=== PATIENT | female | born 1940 | race Caucasian/White ===

== ENCOUNTER 2022-12-09 17:26 | Emergency (ER) | payer MEDICARE, OTHER ==
[~2022-12-09 17:26] MED LIST: Ondansetron 4 MG/2 ML SDV IVPUSH ONE; Sodium Chloride 0.9% 1,000 ML IV ONE; fentaNYL 100 MCG/2 ML SDV IVPUSH ONE
[2022-12-09] MEDS ORDERED: Iopamidol 612 MG/ML 100 ML Bottle IVPUSH ONE (17:47)
[2022-12-09] MEDS ORDERED: Lidocaine 1% 5 ML VIAL INJECT ONE (17:50)
[2022-12-09 18:06] LABS: HEMATOCRIT 41.3 % (37.0-47.0); HEMOGLOBIN 13.8 g/dL (12.0-16.0); MEAN CORPUSCULAR HEMOGLOBIN 30.4 pg (27.0-34.0); MEAN CORPUSCULAR HGB CONC 33.4 g/dL (33.0-35.0); PLATELET COUNT,PLT 283 10^3/uL (150-450); RED BLOOD CELL COUNT 4.54 10^6/uL (4.2-5.4); WHITE BLOOD CELL COUNT,WBC 15.2 10^3/uL (5.0-10.0)
[2022-12-09] MEDS ORDERED: Midazolam 1 MG/ML 2 ML SDV IVPUSH ONE (18:11)
[2022-12-09] MEDS ORDERED: fentaNYL 100 MCG/2 ML SDV IVPUSH ONE ×2 (18:11→19:06)
[2022-12-09 18:12] LABS: ALANINE AMINOTRANSFERASE,ALT 23 U/L (14-59); ALBUMIN 3.8 g/dL (3.4-5.0); ALKALINE PHOSPHATASE 106 U/L (46-116); ANION GAP 14.3 mEq/L (7-13); ASPARTATE AMNIOTRANSFERASE,AST 28 U/L (15-37); BILIRUBIN TOTAL 0.6 mg/dL (0.2-1.0); BLOOD UREA NITROGEN,BUN 23 mg/dL (7-18); BUN/CREATININE RATIO 20.9 (No establ ref range); CALCIUM 8.6 mg/dL (8.5-10.1); CARBON DIOXIDE,CO2 27 mmol/L (21-32); CHLORIDE,CL 106 mmol/L (98-107); GLUCOSE RANDOM 166 mg/dL (70-99); INR 0.9 (0.9-1.2); POTASSIUM,K 4.3 mmol/L (3.5-5.1); PROTEIN TOTAL,TP 7.5 g/dL (6.4-8.2); PROTHROMBIN TIME 9.5 SEC (9.0-12.0); PTT,PARTIAL THROMBOPLSTIN TIME 22.4 SEC (22.0-34.0); SODIUM,NA 143 mmol/L (136-145)
[2022-12-09 18:13] LABS: C-REACTIVE PROTEIN < 0.2 mg/dL (0.0-0.9); ESTIMATED GFR 50 mL/min (>=60)
[2022-12-09 18:14] LABS: B-TYPE NATRIURETIC PEPTIDE,BNP 39 pg/ml (0-100)
[2022-12-09 18:15] LABS: LACTIC ACID 1.3 mmol/L (0.4-2.0)
[2022-12-09 18:31] LABS: BAND PERCENT MAN 3 %; LYMPHOCYTES PERCENT MAN 22 % (20-50); MONOCYTES PERCENT MAN 5 % (2-8); SEG NEUTROPHILS PERCENT MAN 70 % (42-75)
[2022-12-09] MEDS ORDERED: HYDROmorphone 1 MG/ML Syringe IVPUSH ONE ×2 (19:31→21:20)
== END 2022-12-09 22:00 ==
LOC: EDSEX → EDBD → MERGE 17:26 → DL.ED 17:26
DX: S29.9XXA Unspecified injury of thorax, initial encounter (principal); T79.7XXA Traumatic subcutaneous emphysema, initial encounter; J93.9 Pneumothorax, unspecified; J94.2 Hemothorax; M50.30 Other cervical disc degeneration, unspecified cervical region; J98.2 Interstitial emphysema; G93.89 Other specified disorders of brain; W10.9XXA Fall (on) (from) unspecified stairs and steps, initial encounter
CPT/HCPCS: 32551; 36415; 70450; 71045; 71260; 72125; 74177; 80053; 83605; 83880; 85025; 85610; 85730; 86140; 86850; 86900; 86901; 96361; 96374; 96375; 96376; 99285; Q9967